=== PATIENT | female | born 1995 | race Caucasian/White ===

== ENCOUNTER 2020-03-12 17:50 | Emergency (ER) | payer OTHER ==
[~2020-03-12] VITALS: Ht 170.2 cm; Wt 74.5 kg
[2020-03-12 17:50] VITALS: BP 120/74
--- NOTE | 2020-03-12 17:56 | PHYS DOC ---
General Adult HPI: HPI: ".. I was eating a sandwich.. and sneezed... and part of it went up my nose.. 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 Patient attempted to rinse nose out at home and also used nasal rinses with no change in symptoms. Patient denies any lower airway complaints. Patient is normally healthy. Up-to-date with vaccinations. No recent travel. No recent overseas travel. The patient no specific ill contacts. Review of Systems: Review of Systems: Constitutional: Denies fever or chills Eyes: Denies change in visual acuity HENT: Complains of foreign body in right naris Respiratory: Denies cough or shortness of breath Cardiovascular: Denies chest pain or edema GI: Denies abdominal pain, nausea, vomiting, bloody stools or diarrhea : Denies dysuria Musculoskeletal: Denies back pain or joint pain Integument: Denies rash Neurologic: Denies headache, focal weakness or sensory changes Endocrine: Denies polyuria or polydipsia Lymphatic: Denies swollen glands Psychiatric: Denies depression or anxiety Family History: Family History: Noncontributory to presentation Current Medications: Current Meds: See nursing for home meds Allergies: Allergies: No known drug allergies Physical Exam: PE: Constitutional: Well developed, well nourished, moderately acute distress, non- toxic appearance. [] HENT: Normocephalic, atraumatic, bilateral external ears normal, oropharynx moist, no oral exudates, nose right nose canal inflamed and posterior foreign body.. Eyes: PERRLA, EOMI, conjunctiva normal, no discharge. [] Neck: Normal range of motion, no tenderness, supple, no stridor. [] Cardiovascular:Heart rate regular rhythm, no murmur [] Lungs & Thorax: Bilateral breath sounds clear to auscultation [] Abdomen: Bowel sounds normal, soft, no tenderness, no masses, no pulsatile masses. [] Skin: Warm, dry, no erythema, no rash. [] Back: No tenderness, no CVA tenderness. [] Extremities: No tenderness, no cyanosis, no clubbing, ROM intact, no edema. [] Neurologic: Alert and oriented X 3, normal motor function, normal sensory function, no focal deficits noted. [] Psychologic: Affect normal, judgement normal, mood normal. [] EKG: EKG: [] Radiology/Procedures: Radiology/Procedures: [] Heart Score: Risk Factors: Risk Factors: DM, Current or recent (<one month) smoker, HTN, HLP, family history of CAD, obesity. Risk Scores: Score 0 - 3: 2.5% MACE over next 6 weeks - Discharge Home Score 4 - 6: 20.3% MACE over next 6 weeks - Admit for Clinical Observation Score 7 - 10: 72.7% MACE over next 6 weeks - Early Invasive Strategies Course & Med Decision Making: Course & Med Decision Making Pertinent Labs and Imaging studies reviewed. (See chart for details) Procedure note-application of topical cocaine and lidocaine gel by MAD applicator to right naris. Instillation of a Cox 12 Fr. catheter in right nares. This caused Removal of foreign body in posterior nares. Reattempt no further foreign body found. . Did also pull out catheter balloon slightly enlarged with no no residual froeign body appreciated. Patient to be very cautious on eating or drinking because of the cocaine and lidocaine can numb the airway and throat- causing potential aspiration. Patient advised drug test will be positive for cocaine. Patient return if any concerns. Follow-up primary care. Impression: 1. Foreign body up Rt naris. ( Food) [] Victorino Disclaimer: Victorino Disclaimer: This electronic medical record was generated, in whole or in part, using a voice recognition dictation system. Departure Departure: Referrals: PCP,UNKNOWN (PCP) Victorino Disclaimer This chart was dictated in whole or in part using Voice Recognition software in a busy, high-work load, and often noisy Emergency Department environment. It may contain unintended and wholly unrecognized errors or omissions. MARGARITA GARCIA MD Mar 12, 2020 17:56
[2020-03-12] MEDS ORDERED: COCAINE 4% TOPICAL SOLUTION. TP ONE (18:06)
[2020-03-12] MEDS ORDERED: LIDOCAINE 2% TOPICAL JELLY 5GM TUBE. TP ONE (18:14)
== END 2020-03-12 18:42 | disposition home or self-care (01) ==
LOC: ER 17:50
DX: T17.1XXA Foreign body in nostril, initial encounter (principal); X58.XXXA Exposure to other specified factors, initial encounter; Y93.89 Activity, other specified; Y92.89 Other specified places as the place of occurrence of the external cause; Y99.8 Other external cause status
CPT/HCPCS: 30300; 99284